=== PATIENT | female | born 1955 | race Caucasian/White ===

== ENCOUNTER 2017-03-08 21:56 | Emergency (ER) | payer BC ==
[2017-03-08] MEDS ORDERED: Pantoprazole 40 MG Vial IVPUSH ONE (22:11)
[2017-03-08] MEDS ORDERED: Sodium Chloride 0.9% 2.5 ML Syringe FLUSH PRN (22:11)
[2017-03-08] MEDS ORDERED: Morphine 2 MG/ML Syringe IVPUSH ONE (22:11)
[2017-03-08] MEDS ORDERED: Ondansetron 4 MG/2 ML SDV IVPUSH ONE (22:11)
[2017-03-08] MEDS ORDERED: Sodium Chloride 0.9% 10 ML Syringe FLUSH PRN (22:11)
[2017-03-08] MEDS ORDERED: Sodium Chloride 0.9% 1,000 ML IV ONE (22:11)
--- NOTE | 2017-03-08 22:15 | EDM.PDOC ---
ED HPI GENERAL MEDICAL PROBLEM - General Chief Complaint: Abdominal Pain Stated Complaint: STOMACH PAIN Time Seen by Provider: 03/08/17 22:03 - History of Present Illness INITIAL COMMENTS - FREE TEXT/NARRATIVE: HISTORY AND PHYSICAL: History of present illness: The patient is a 61-year-old female with a history of cholecystectomy, total hysterectomy, " small bowel removed with appendectomy" for small bowel obstruction 8 years ago who presents with complaints of lower bowel pain that started yesterday distention of her abdomen worsening of pain today and dry heaves that started this evening. She did have 4 small bowel movements today which were not black or bloody and there were not diarrhea. She denies any fever chills chest pain or shortness of breath and has no flank pain. She has no urinary complaints. Patient says that she had an EGD recently and diagnosed her with gastritis and they put her on Zantac. This procedure was performed in [place]. She last saw her in [facility] in [place] in September. SHe did not have a colonoscopy at that time but did have one a year ago. Patient describes the pain is mostly on the right side of her abdomen and that has not changed although when it started it was bilateral lower abdomen. She feels distended and bloated. Patient states that her surgery and her GI doctor are at [facility] in [place] Review of systems: As per history of present illness and below otherwise all systems reviewed and negative. Past medical history: As per history of present illness and as reviewed below otherwise noncontributory. Surgical history: As per history of present illness and as reviewed below otherwise noncontributory. Social history: No reported history of drug or alcohol abuse. Family history: As per history of present illness and as reviewed below otherwise noncontributory. Physical exam: General: Well-developed well-nourished female who is nontoxic and dry heaving in the ER. HEENT: Atraumatic, normocephalic, pupils reactive, negative for conjunctival pallor or scleral icterus, mucous membranes tacky, throat clear, neck supple, nontender, trachea midline. Lungs: Clear to auscultation, breath sounds equal bilaterally, chest nontender. Heart: S1S2, regular, negative for clicks, rubs, or JVD. Abdomen: Soft, she has abdominal distention and diminished bowel sounds throughout. There is tympany on percussion and diffuse tenderness of the abdomen more on the right side. There is some voluntary guarding but no involuntary guarding or rebound. Negative for masses or hepatosplenomegaly. Negative for costovertebral tenderness. Pelvis: Stable nontender. Genitourinary: Deferred. Rectal: Deferred. Extremities: Atraumatic, negative for cords or calf pain. Neurovascular unremarkable. Neuro: Awake, alert, oriented. Cranial nerves II through XII unremarkable. Cerebellum unremarkable. Motor and sensory unremarkable throughout. Exam nonfocal. Diagnostics: CBC CMP lipase lactic acid UA abdominal x-rays if x-rays are negative, CT scan of the abdomen and pelvis Therapeutics: IV IV fluids Zofran and morphine 0010: Case was discussed with our surgeon on-call , who feels uncomfortable with admitted this case because if she requires surgical intervention this would be a complicated surgery and we would not have the appropriate support here and she should be transferred back to where she has had her care previously. Patient is aware of this. Patient was offered transfer to [facility] in [place] which she has refused and prefers going to [facility] in [place]. 0037: Case was discussed with the hospitalist at [facility] in [place], Dr. Gonzales; he accepts the patient for transfer. He would like an NG tube to be placed on low intermittent suction and IV fluids to run at 150 cc per hour for the transfer. I discussed all these conversations with the patient and she is agreeable. Impression: Small bowel obstruction with history of prior bowel obstruction and resection Definitive disposition and diagnosis as appropriate pending reevaluation and review of above. Abdominal Pain Score (Numeric/FACES): 9 - Related Data Allergies Allergy/AdvReac Type Severity Reaction Status Date / Time Penicillins Allergy Rash Verified 03/08/17 22:42 IVP dye Allergy Itching Uncoded 03/08/17 22:42 Home Meds: Home Meds Potassium Chloride 20 meq PO TID 05/26/15 [History] Docusate Sodium [Dulcolax Stool Softener] 100 mg PO DAILY 03/08/17 [History] Losartan/Hydrochlorothiazide [Losartan-HCTZ 50-12.5 MG] 12.5 - 50 mg PO DAILY [History] Ranitidine [Zantac] 150 mg PO BEDTIME 03/08/17 [History] Past Medical History Other Cardiovascular History: hx rt leg DVT while on control 37 yrs ago Other Oncologic History: hx vulva dysplasia - Past Surgical History Other HEENT Surgeries/Procedures: sinus surgery Other Musculoskeletal Surgeries/Procedures:: rt knee surgery with placement of orthopedic pins Social & Family History - Tobacco Use Smoking Status *Q: Former Smoker Years of Tobacco use: 25 Used Tobacco, but Quit: Yes Month Tobacco Last Used: 2009 - Alcohol Use Days Per Week of Alcohol Use: 0 - Recreational Drug Use Recreational Drug Use: No Drug Use in Last 12 Months: No ED ROS GENERAL - Review of Systems Review Of Systems: ROS reveals no pertinent complaints other than HPI. ED EXAM, GENERAL - Physical Exam Exam: See Below (See dictation) Course - Vital Signs Last Recorded V/S: Last Vital Signs Temp 36.0 C 03/08/17 22:02 Pulse 72 03/08/17 22:02 Resp 19 03/08/17 22:02 BP 174/82 H 03/08/17 22:02 Pulse Ox 96 03/08/17 22:02 - Orders/Labs/Meds Orders: Active Orders 24 hr Category Date Time Status Abdomen 2V AP Flat Upright [CR] Stat Exams 03/08/17 22:15 Taken Abdomen Pelvis w Cont [CT] Stat Exams 03/08/17 22:11 Taken Lactated Ringers @ 150 MLS/HR(1,000ml) Med 03/09/17 00:45 Ordered Lactated Ringers [Ringers, Lactated] 1,000 ml IV ASDIRECTED Sodium Chloride 0.9% [Saline Flush] Med 03/08/17 22:11 Active 10 ml FLUSH ASDIRECTED PRN Sodium Chloride 0.9% [Saline Flush] Med 03/08/17 22:11 Active 2.5 ml FLUSH ASDIRECTED PRN Nasogastric Orogastric Tube Insertion [OM.PC] Stat Oth 03/09/17 00:39 Ordered Saline Lock Insert [OM.PC] Stat Oth 03/08/17 22:11 Ordered Medication Orders Lactated Ringer's (Ringers, Lactated) 1,000 mls @ 150 mls/hr IV ASDIRECTED JUANCHO Sodium Chloride (Saline Flush) 10 ml FLUSH ASDIRECTED PRN PRN Reason: Keep Vein Open Last Admin: 03/08/17 22:30 Dose: 10 ml Sodium Chloride (Saline Flush) 2.5 ml FLUSH ASDIRECTED PRN PRN Reason: Keep Vein Open Last Admin: 03/08/17 22:29 Dose: 2.5 ml Labs: Laboratory Tests 03/08/17 03/08/17 03/08/17 Range/Units 22:25 22:25 22:25 WBC 15.38 H (4.0-11.0) K/uL RBC 4.80 (4.30-5.90) M/uL Hgb 14.8 (12.0-16.0) g/dL Hct 44.1 (36.0-46.0) % MCV 91.9 (80.0-98.0) fL MCH 30.8 (27.0-32.0) pg MCHC 33.6 (31.0-37.0) g/dL RDW Std Deviation 42.4 (28.0-62.0) fl RDW Coeff of Noe 13 (11.0-15.0) % Plt Count 221 (150-400) K/uL MPV 10.20 (7.40-12.00) fL Neut % (Auto) 80.2 H (48.0-80.0) % Lymph % (Auto) 14.0 L (16.0-40.0) % Swift % (Auto) 5.2 (0.0-15.0) % Eos % (Auto) 0.5 (0.0-7.0) % Baso % (Auto) 0.1 (0.0-1.5) % Neut # (Auto) 12.3 H (1.4-5.7) K/uL Lymph # (Auto) 2.2 (0.6-2.4) K/uL Swift # (Auto) 0.8 (0.0-0.8) K/uL Eos # (Auto) 0.1 (0.0-0.7) K/uL Baso # (Auto) 0.0 (0.0-0.1) K/uL Nucleated RBC % 0.0 /100WBC Nucleated RBCs # 0 K/uL Lactate 1.5 (0.20-2.00) mmol/L Sodium 141 (136-146) mmol/L Potassium 3.9 (3.5-5.1) mmol/L Chloride 106 (98-110) mmol/L Carbon Dioxide 25 (21-31) mmol/L BUN 17 (6.0-23.0) mg/dL Creatinine 0.9 (0.6-1.5) mg/dL Est Cr Clr Drug Dosing 45.96 mL/min Estimated GFR (MDRD) > 60.0 ml/min Glucose 132 H (60-110) mg/dL Calcium 9.7 (8.8-10.8) mg/dL Total Bilirubin 0.9 (0.1-1.5) mg/dL AST 18 (5-40) IU/L ALT 36 (8-54) IU/L Alkaline Phosphatase 88 (40-150) Total Protein 7.2 (6.0-8.0) g/dL Albumin 4.1 (3.4-4.8) g/dL Globulin 3.1 (2.0-3.5) g/dL Albumin/Globulin Ratio 1.3 (1.3-2.8) Lipase 21 (7-80) U/L Urine Color Urine Appearance Urine pH (5.0-8.0) Ur Specific Loring (1.001-1.035) Urine Protein (NEGATIVE) mg/dL Urine Glucose (UA) (NEGATIVE) mg/dL Urine Ketones (NEGATIVE) mg/dL Urine Occult Blood (NEGATIVE) Urine Nitrite (NEGATIVE) Urine Bilirubin (NEGATIVE) Urine Urobilinogen (<2.0) EU/dL Ur Leukocyte Esterase (NEGATIVE) Urine RBC (0-2/HPF) Urine WBC (0-5/HPF) Ur Epithelial Cells (NONE-FEW) Urine Bacteria (NEGATIVE) 03/09/17 Range/Units 00:15 WBC (4.0-11.0) K/uL RBC (4.30-5.90) M/uL Hgb (12.0-16.0) g/dL Hct (36.0-46.0) % MCV (80.0-98.0) fL MCH (27.0-32.0) pg MCHC (31.0-37.0) g/dL RDW Std Deviation (28.0-62.0) fl RDW Coeff of Noe (11.0-15.0) % Plt Count (150-400) K/uL MPV (7.40-12.00) fL Neut % (Auto) (48.0-80.0) % Lymph % (Auto) (16.0-40.0) % Swift % (Auto) (0.0-15.0) % Eos % (Auto) (0.0-7.0) % Baso % (Auto) (0.0-1.5) % Neut # (Auto) (1.4-5.7) K/uL Lymph # (Auto) (0.6-2.4) K/uL Swift # (Auto) (0.0-0.8) K/uL Eos # (Auto) (0.0-0.7) K/uL Baso # (Auto) (0.0-0.1) K/uL Nucleated RBC % /100WBC Nucleated RBCs # K/uL Lactate (0.20-2.00) mmol/L Sodium (136-146) mmol/L Potassium (3.5-5.1) mmol/L Chloride (98-110) mmol/L Carbon Dioxide (21-31) mmol/L BUN (6.0-23.0) mg/dL Creatinine (0.6-1.5) mg/dL Est Cr Clr Drug Dosing mL/min Estimated GFR (MDRD) ml/min Glucose (60-110) mg/dL Calcium (8.8-10.8) mg/dL Total Bilirubin (0.1-1.5) mg/dL AST (5-40) IU/L ALT (8-54) IU/L Alkaline Phosphatase (40-150) Total Protein (6.0-8.0) g/dL Albumin (3.4-4.8) g/dL Globulin (2.0-3.5) g/dL Albumin/Globulin Ratio (1.3-2.8) Lipase (7-80) U/L Urine Color YELLOW Urine Appearance CLEAR Urine pH 5.5 (5.0-8.0) Ur Specific Loring 1.010 (1.001-1.035) Urine Protein NEGATIVE (NEGATIVE) mg/dL Urine Glucose (UA) NEGATIVE (NEGATIVE) mg/dL Urine Ketones NEGATIVE (NEGATIVE) mg/dL Urine Occult Blood TRACE-INTACT (NEGATIVE) Urine Nitrite NEGATIVE (NEGATIVE) Urine Bilirubin NEGATIVE (NEGATIVE) Urine Urobilinogen 0.2 (<2.0) EU/dL Ur Leukocyte Esterase NEGATIVE (NEGATIVE) Urine RBC 0-2 (0-2/HPF) Urine WBC 0-1 (0-5/HPF) Ur Epithelial Cells RARE (NONE-FEW) Urine Bacteria RARE (NEGATIVE) Meds: Medications Generic Name Dose Route Start Last Admin Trade Name Freq PRN Reason Stop Dose Admin Lactated Ringer's 1,000 mls @ 150 mls/hr 03/09/17 00:45 Ringers, Lactated IV ASDIRECTED JUANCHO Sodium Chloride 10 ml 03/08/17 22:11 03/08/17 22:30 Saline Flush FLUSH 10 ml ASDIRECTED PRN Administration Keep Vein Open Sodium Chloride 2.5 ml 03/08/17 22:11 03/08/17 22:29 Saline Flush FLUSH 2.5 ml ASDIRECTED PRN Administration Keep Vein Open Discontinued Medications Generic Name Dose Route Start Last Admin Trade Name Esdrasq PRN Reason Stop Dose Admin Sodium Chloride 1,000 mls @ 999 mls/hr 03/08/17 22:11 03/08/17 22:26 Normal Saline IV 03/08/17 23:11 999 mls/hr STAT ONE Administration Iopamidol 100 ml 03/08/17 23:07 03/08/17 23:08 Isovue Multipack-370 (76%) IVPUSH 03/08/17 23:08 100 ml ONETIME STA Administration Morphine Sulfate 4 mg 03/08/17 22:11 03/08/17 22:28 Morphine IVPUSH 03/08/17 22:12 4 mg ONETIME ONE Administration Ondansetron HCl 4 mg 03/08/17 22:11 03/08/17 22:28 Zofran IVPUSH 03/08/17 22:12 4 mg ONETIME ONE Administration Pantoprazole Sodium 80 mg 03/08/17 22:11 03/08/17 22:29 Protonix Iv IVPUSH 03/08/17 22:12 80 mg .BOLUS ONE Administration Departure - Departure Time of Disposition: 00:41 Disposition: DC/Tfer to Acute Hospital 02 Condition: good Clinical Impression: Small bowel obstruction Forms: ED Department Discharge - My Orders Last 24 Hours: My Active Orders 03/08/17 22:11 Abdomen Pelvis w Cont [CT] Stat Sodium Chloride 0.9% [Saline Flush] 10 ml FLUSH ASDIRECTED PRN Sodium Chloride 0.9% [Saline Flush] 2.5 ml FLUSH ASDIRECTED PRN Saline Lock Insert [OM.PC] Stat 03/08/17 22:15 Abdomen 2V AP Flat Upright [CR] Stat 03/09/17 00:39 Nasogastric Orogastric Tube Insertion [OM.PC] Stat 03/09/17 00:45 Lactated Ringers @ 150 MLS/HR(1,000ml) Lactated Ringers [Ringers, Lactated] 1, 000 ml IV ASDIRECTED - Assessment/Plan Last 24 Hours: My Active Orders 03/08/17 22:11 Abdomen Pelvis w Cont [CT] Stat Sodium Chloride 0.9% [Saline Flush] 10 ml FLUSH ASDIRECTED PRN Sodium Chloride 0.9% [Saline Flush] 2.5 ml FLUSH ASDIRECTED PRN Saline Lock Insert [OM.PC] Stat 03/08/17 22:15 Abdomen 2V AP Flat Upright [CR] Stat 03/09/17 00:39 Nasogastric Orogastric Tube Insertion [OM.PC] Stat 03/09/17 00:45 Lactated Ringers @ 150 MLS/HR(1,000ml) Lactated Ringers [Ringers, Lactated] 1, 000 ml IV ASDIRECTED
[2017-03-08 22:57] LABS: CHLORIDE,CL 106 mmol/L (98-110); SODIUM,NA 141 mmol/L (136-146)
[2017-03-08] MEDS ORDERED: Iopamidol 755 MG/ML 500 ML Multipack Bottle IVPUSH STA (23:07)
[2017-03-09] MEDS ORDERED: Lactated Ringers 1,000 ML IV SCH (00:45)
[2017-03-09] MEDS ORDERED: HYDROmorphone 2 MG/ML Syringe IVPUSH ONE (00:50)
[2017-03-09] MEDS ORDERED: Ondansetron 4 MG/2 ML SDV IVPUSH ONE (00:50)
[2017-03-09 02:15] VITALS: BP 117/64
--- NOTE | 2017-03-09 14:27 | CR ---
EXAM DATE: 03/08/17 PATIENT'S AGE: 61 Patient: LUIS TALAVERA Facility: [place], [place] Site . Site : 1955 Study: XRay Abdomen [id number]/2017 10:55:42 PM Ordering Physician: Jose Rosario Final Report: INDICATION: Abdominal pain x2 days, dry heaving, nausea, bloating, pain TECHNIQUE: Abdomen 3 view. COMPARISON: None FINDINGS: Bowel: Dilated air distended small bowel loops in the upper abdomen measuring up to 5.0 centimeters with air-fluid levels and a paucity of bowel gas in the lower pelvis and within the colon. Findings worrisome for small bowel obstruction. Soft tissues: No sign of free air. No sign of soft tissue mass. No suspicious calcifications. Bones: Unremarkable for age. IMPRESSION: Dilators and small bowel loops in the upper abdomen measuring up to 5.0 centimeters with air-fluid levels and a paucity of bowel gas in the lower pelvis and within the colon. Findings were some small bowel obstruction. Dictated by Baldomero Harper MD @ Mar 08 2017 10:58PM (Electronic Signature) \Report Signed by Proxy and Original Signed Document filed in the Medical Record. [facility]
--- NOTE | 2017-03-09 14:28 | CT ---
EXAM DATE: 03/08/17 PATIENT'S AGE: 61 Patient: LUIS TALAVERA Facility: [place], [place] Site . Site : 1955 Study: CT Abdomen/Pelvis [id number]/2017 11:32:30 PM Ordering Physician: Jose Rosario Final Report: INDICATION: Bowel obstruction TECHNIQUE: CT abdomen and pelvis acquired with IV contrast. COMPARISON: 06/09/2015 FINDINGS: Lower chest: Unremarkable. Liver: Hepatic steatosis. Spleen: Unremarkable. Pancreas: Unremarkable. Gallbladder and bile ducts: Evidence of prior cholecystectomy. Kidneys: Unremarkable. Adrenal glands: Unremarkable. GI tract: Dilated fluid-filled small bowel loops measure up to 4.0 centimeters with transition point in the proximal ileum. Decompression of the descending colon. Findings consistent with small bowel obstruction. Sigmoid diverticulosis. Appendix is normal. Vascular structures: Unremarkable. Lymph nodes: Unremarkable. Miscellaneous: Unremarkable. No free air or significant free fluid. Pelvic Organs: Unremarkable. Bones: Unremarkable for age. IMPRESSION: Dilated fluid-filled small bowel loops measure up to 4.0 centimeters with transition in the region of the proximal ileum. Findings consistent with small bowel obstruction. No evidence of perforation or pneumatosis intestinalis. Dictated by Baldomero Harper MD @ 03/08/2017 11:49:33 PM Dictated by: Baldomero Harper MD @ 03/08/2017 23:49:51 ----- ADDENDUM ----- Confirmation of report received on 03/08/2017 at 11:[address] Garcia: Dictated by Baldomero Harper MD @ Mar 08 2017 11:56PM (Electronic Signature) Report Signed by Proxy and Original Signed Document filed in the Medical Record. [facility]
== END 2017-03-09 02:00 ==
LOC: MW.ED 21:56
DX: K56.60 Unspecified intestinal obstruction (principal); Z88.0 Allergy status to penicillin; Z91.041 Radiographic dye allergy status; Z86.718 Personal history of other venous thrombosis and embolism; Z79.899 Other long term (current) drug therapy; Z87.891 Personal history of nicotine dependence
CPT/HCPCS: 36415; 74020; 74177; 80053; 81001; 83605; 83690; 85025; 96361; 96365; 96375; 96376; 99285; C9113; J1170; J2270; J2405; J7040; J7120; Q9967

== ENCOUNTER → 2017-03-23 | Outpatient (CLI) | payer BC ==
--- NOTE | 2017-03-23 16:20 | US ---
EXAMINATION: Right upper extremity venous Doppler HISTORY: History of thrombosis COMPARISON: None TECHNIQUE: Grayscale, color Doppler, and spectral Doppler images obtained of the right upper extremi ty. FINDINGS: There is normal color flow and spectral flow within the right jugular, subclavian, axillar y, and brachial arteries. The basilic, cephalic, and antecubital veins also appear patent. No fillin g defects identified. IMPRESSION: No venous thrombus noted within the right upper extremity arterial system.
== END ==
LOC: MW.US 14:06
PROVIDERS: ATTEND Nurse Practitioner Family
DX: Z86.718 Personal history of other venous thrombosis and embolism (principal)
CPT/HCPCS: 93971-26-RT; 93971-RT

== ENCOUNTER 2018-06-04 07:41 | Emergency (ER) | payer BC ==
[2018-06-04] MEDS ORDERED: diphenhydrAMINE 25 MG Cap PO ONE (08:12)
--- NOTE | 2018-06-04 08:12 | EDM.PDOC ---
ED HPI GENERAL MEDICAL PROBLEM - General Chief Complaint: ENT Problem Stated Complaint: LEFT EYE- PAINFUL, SWOLLEN, RED Time Seen by Provider: 06/04/18 07:56 Source of Information: Reports: Patient History Limitations: Reports: No Limitations - History of Present Illness INITIAL COMMENTS - FREE TEXT/NARRATIVE: History of present illness: []Patient has swelling of the left upper eyelid that started 4 days ago after mowing the lawn. Patient uses Visine last night and noted white crusting around her eyelid. She she has no visual changes, fevers or exposures to anyone with similar symptoms. She is also requesting a refill of her Zofran for nausea. Review of systems: As per history of present illness and below otherwise all systems reviewed and negative. Past medical history: As per history of present illness and as reviewed below otherwise noncontributory. Surgical history: As per history of present illness and as reviewed below otherwise noncontributory. Social history: No reported history of drug or alcohol abuse. Family history: As per history of present illness and as reviewed below otherwise noncontributory. Physical exam: General: Well developed, well nourished in NAD HEENT: Left upper eyelid with mild erythema and edematous., normocephalic, pupils reactive, negative for conjunctival pallor, erythema or scleral icterus, mucous membranes moist, throat clear, neck supple, nontender, trachea midline. Lungs: Clear to auscultation, breath sounds equal bilaterally, chest nontender. Heart: S1S2, regular, negative for clicks, rubs, or JVD. Abdomen: Soft, nondistended, nontender. Negative for masses or hepatosplenomegaly. Negative for costovertebral tenderness. Pelvis: Stable nontender. Genitourinary: Deferred. Rectal: Deferred. Extremities: Atraumatic, negative for cords or calf pain. Neurovascular unremarkable. Neuro: Awake, alert, oriented. Cranial nerves II through XII unremarkable. Cerebellum unremarkable. Motor and sensory unremarkable throughout. Exam nonfocal. Diagnostics: [] Therapeutics: [Benadryl Impression: []Upper eyelid swelling, likely allergy Plan: []Benadryl, med refill Zofran, follow up with PMD as needed Definitive disposition and diagnosis as appropriate pending reevaluation and review of above. Left Eye Pain Score (Numeric/FACES): 4 - Related Data Allergies Allergy/AdvReac Type Severity Reaction Status Date / Time Penicillins Allergy Rash Verified 06/04/18 08:01 IVP dye Allergy Itching Uncoded 06/04/18 08:01 Home Meds: Home Meds Potassium Chloride 20 meq PO TID 05/26/15 [History] Docusate Sodium [Dulcolax Stool Softener] 100 mg PO DAILY 03/08/17 [History] Losartan/Hydrochlorothiazide [Losartan-HCTZ 50-12.5 MG] 12.5 - 50 mg PO DAILY [History] Ranitidine [Zantac] 150 mg PO BEDTIME 03/08/17 [History] Past Medical History Cardiovascular History: Reports: Hypertension Other Cardiovascular History: hx rt leg DVT while on control 37 yrs ago Gastrointestinal History: Reports: Bowel Obstruction, GERD Other Oncologic History: hx vulva dysplasia - Infectious Disease History Infectious Disease History: Reports: Chicken Pox, Mumps - Past Surgical History Other HEENT Surgeries/Procedures: sinus surgery Female Surgical History: Reports: Section, Hysterectomy Other Musculoskeletal Surgeries/Procedures:: rt knee surgery with placement of orthopedic pins Social & Family History - Family History Family Medical History: Noncontributory - Tobacco Use Smoking Status *Q: Former Smoker Used Tobacco, but Quit: Yes Month/Year Tobacco Last Used: 2007 - Caffeine Use Caffeine Use: Reports: Coffee Caffeine Use Comment: 1 cup/day ED ROS GENERAL - Review of Systems Review Of Systems: See Below (See history of present illness) ED EXAM GENERAL W FULL EYE - Physical Exam Exam: See Below (See history of present illness) Course - Vital Signs Last Recorded V/S: Last Vital Signs Temp 97.7 F 06/04/18 07:57 Pulse 87 06/04/18 07:57 Resp 16 06/04/18 07:57 BP 137/87 06/04/18 07:57 Pulse Ox 98 06/04/18 07:57 - Orders/Labs/Meds Meds: Medications Discontinued Medications Generic Name Dose Route Start Last Admin Trade Name Freq PRN Reason Stop Dose Admin Diphenhydramine HCl 25 mg 06/04/18 08:12 Benadryl PO 06/04/18 08:13 ONETIME ONE Departure - Departure Time of Disposition: 08:17 Disposition: Home, Self-Care 01 Condition: Good Clinical Impression: Allergic reaction Qualifiers: Encounter type: initial encounter Qualified Code(s): T78.40XA - Allergy, unspecified, initial encounter - Discharge Information Referrals: Vilma Chávez [employer] [Primary Care Provider] - Forms: ED Department Discharge Additional Instructions: The following information is given to patients seen in the emergency department who are being discharged to home. This information is to outline your options for follow-up care. We provide all patients seen in our emergency department with a follow-up referral. The need for follow-up, as well as the timing and circumstances, are variable depending upon the specifics of your emergency department visit. If you don't have a primary care physician on staff, we will provide you with a referral. We always advise you to contact your personal physician following an emergency department visit to inform them of the circumstance of the visit and for follow-up with them and/or the need for any referrals to a consulting specialist. The emergency department will also refer you to a specialist when appropriate. This referral assures that you have the opportunity for follow-up care with a specialist. All of these measure are taken in an effort to provide you with optimal care, which includes your follow-up. Under all circumstances we always encourage you to contact your private physician who remains a resource for coordinating your care. When calling for follow-up care, please make the office aware that this follow-up is from your recent emergency room visit. If for any reason you are refused follow-up, please contact the [facility] Emergency Department at and asked to speak to the emergency department charge nurse. [address] [address]
[2018-06-04 08:47] VITALS: BP 125/73
== END 2018-06-04 08:45 | disposition home or self-care (01) ==
LOC: MW.ED 07:41
DX: T78.40XA Allergy, unspecified, initial encounter (principal); R22.0 Localized swelling, mass and lump, head; Z91.041 Radiographic dye allergy status; I10 Essential (primary) hypertension; K21.9 Gastro-esophageal reflux disease without esophagitis; Z79.899 Other long term (current) drug therapy; Z87.891 Personal history of nicotine dependence; Z88.0 Allergy status to penicillin
CPT/HCPCS: 99283; A9270